=== PATIENT | female | born 2000 | race Caucasian/White ===

== ENCOUNTER 2021-03-11 14:14 | Outpatient (CLI) | payer OTHER, SELFPAY ==
--- NOTE | ~2021-03-11 | MR_ITS ---
EXAMINATION: MR knee LT wo con DATE: 03/11/2021 14:59 INDICATION: Left knee injury. TECHNIQUE: Magnetic resonance imaging (MRI) of the left knee was performed without intravenous contra st. Sequences included axial PD-weighted FS FSE, coronal PD-weighted FSE and PD-weighted FS FSE, sagi ttal PD-weighted FSE, and sagittal T2-weighted FS FSE. COMPARISON: None. FINDINGS: Medial compartment: Medial meniscus is normal. Medial compartment cartilage is normal. Lateral compartment: There is a vertical tear of posterior root of lateral meniscus. Lateral compartment cartilage is norm al. Patellofemoral compartment: Patellar cartilage is normal. Trochlear cartilage is normal. Ligaments and tendons: There is a complete tear of anterior cruciate ligament. Posterior cruciate ligament is normal. There is a partial tear of medial collateral ligament with surrounding edema. There is a partial tear of fi bular collateral ligament with surrounding edema. Fluid: There is a moderate-sized knee joint effusion. There is trace fluid in a Lowery's cyst. Osseous/other: There is edema-like marrow signal intensity in posterior medial and lateral tibial condyles and the n otch of lateral femoral condyle, consistent with contusions. IMPRESSION: 1. Complete tear of anterior cruciate ligament. 2. Tear of lateral meniscus. 3. Partial tears of medial collateral ligament and fibular collateral ligament (grade 2 sprains). 4. Moderate-sized knee joint effusion. Reviewed, dictated and finalized at location A. TARY LANDFILL OPERATOR
== END 2021-03-11 14:15 | disposition home or self-care (01) ==
LOC: ANHIMG 14:20
PROVIDERS: PCP Nurse Practitioner Family; Visit Provider Orthopaedic Surgery
DX: M25.562 Pain in left knee (principal); S83.512A Sprain of anterior cruciate ligament of left knee, initial encounter; S83.282A Other tear of lateral meniscus, current injury, left knee, initial encounter; S83.412A Sprain of medial collateral ligament of left knee, initial encounter; M25.462 Effusion, left knee
CPT/HCPCS: 73721

== ENCOUNTER 2024-02-27 13:43 | Outpatient (CLI) | payer BC, SELFPAY ==
--- NOTE | ~2024-02-27 | MR_ITS ---
EXAMINATION: MR knee LT wo con DATE: 02/27/2024 14:23 INDICATION: Left knee pain TECHNIQUE: Magnetic resonance imaging (MRI) of the left knee was performed without intravenous contra st. Sequences included sagittal and coronal PD-weighted FSE, axial, sagittal and coronal fluid sensi tive FSE STIR and axial PD weighted fat saturated FSE. COMPARISON: None. FINDINGS: Medial compartment: Diffuse bucket-handle tear of the medial meniscus with lateral displacement of the bucket-handle flap which extends anteroposteriorly across the medial side of the intercondylar eminence. Articular cart ilage is normal. Lateral compartment: Small partial-thickness longitudinal vertical tear extending to the inferior articular surface of the posterior horn of the lateral meniscus. There is suggestion of an additional likely radial tear/avul tania at the posterior root of the lateral meniscus. There is an intact posterior meniscal femoral lig ament of Samirisberg. Articular cartilage is normal. Patellofemoral compartment: Full/near full-thickness chondral fissure but without degenerative subchondral changes at the central aspect of the medial patellar facet. Remaining cartilage in the patellofemoral compartment is normal . Ligaments and tendons: Posterior cruciate ligament is normal. There has been prior anterior cruciate ligament reconstruction . There is at least partial tear of the ligament graft with cyclops lesion with anterior reflection f rom the tibial tunnel of a portion of the torn graft. Mild thickening of the proximal medial and fibu lar collateral ligaments without increased signal or surrounding edema consistent with mild scarring related to chronic sprains. The extensor mechanism is normal. The visualized medial and lateral hamst ring tendons as well as the iliotibial band are normal. Fluid: Small knee joint effusion. No loose osteochondral bodies identified. Osseous/other: Normal marrow signal. No fracture or pathologic marrow replacing process. IMPRESSION: 1. Anterior cruciate ligament reconstruction with recurrent at least partial tear of the ligament gra ft. 2. New bucket-handle tear of the medial meniscus with lateral displacement of the flap which extends anteroposteriorly across the intercondylar eminence. 3. Persistent tear versus avulsion at the posterior root of the lateral meniscus with new partial-thi ckness horizontal tear plane extending laterally into the posterior horn. 4. Deep chondral fissure at the central medial patellar facet. 5. Small left knee joint effusion. Reviewed, dictated and finalized at location B. T [employer]OTECTION SPECIALIST IMPRESSION: 1. Anterior cruciate ligament reconstruction with recurrent at least partial te ar of the ligament graft. 2. New bucket-handle tear of the medial meniscus with lateral displacement of t he flap which extends anteroposteriorly across the intercondylar eminence. 3. Persistent tear versus avulsion at the posterior root of the lateral meniscu s with new partial-thickness horizontal tear plane extending laterally into the posterior horn. 4. Deep chondral fissure at the central medial patellar facet. 5. Small left knee joint effusion.
== END 2024-02-27 13:44 | disposition home or self-care (01) ==
PROVIDERS: PCP Nurse Practitioner Family; Visit Provider Orthopaedic Surgery
DX: M25.462 Effusion, left knee (principal)
CPT/HCPCS: 73721